=== PATIENT | female | born 1950 | race Caucasian/White ===

== ENCOUNTER 2021-11-08 16:18 | Emergency (ER) | payer MEDICARE, MEDICAID ==
[~2021-11-08] VITALS: Ht 162.6 cm; Wt 81.0 kg
[~2021-11-08 16:18] MED LIST: AMLO10TA80 PO; AMOX125S12 PO; ASPI-1497 PO; BENA40TA91 PO; BRIM5DRO EACHEYE; DORZ10DR9 EACHEYE; LATA2.5D14 EACHEYE; METF-416 PO
[2021-11-08 16:45] VITALS: BP 172/88
[2021-11-08 18:04] LABS: HEMATOCRIT. 36.8 % (36.0-48.0); HEMOGLOBIN. 12.5 g/dL (12.0-16.0); MEAN CORPUSCULAR HEMOGLOBIN 31.3 pg (28.0-32.0); PLATELET 207 x1000/uL (130-400); RED CELL DISTRIBUTION WIDTH 13.3 % (11.6-14.6)
[2021-11-08 18:12] LABS: CLARITY URINE CLEAR (CLEAR); COLOR URINE YELLOW (YELLOW); KETONES URINE NEGATIVE (NEGATIVE); LEUKOCYTE ESTERASE URINE 3+ (NEGATIVE); NITRITE URINE NEGATIVE (NEGATIVE); OCCULT BLOOD URINE NEGATIVE (NEGATIVE); PH URINE 6.5 (4.5-8.0); PROTEIN URINE TRACE (NEGATIVE); SPECIFIC GRAVITY URINE 1.021 (1.005-1.030); UROBILINOGEN URINE 0.2 E.U./dL (0.2-1.0)
[2021-11-08 18:13] LABS: CHLORIDE 103 mEq/L (98-107)
[2021-11-08 18:56] LABS: PLATELET ESTIMATE NORMAL
[2021-11-08] MEDS ORDERED: T3 PO (19:41)
[2021-11-08] MEDS ORDERED: CEPH500T MT (19:41)
[2021-11-08] MEDS ORDERED: IBUP-2029 MT (19:41)
[2021-11-08] MEDS ORDERED: IBUPROFEN 600MG TABLET PO ONE (19:45)
== END 2021-11-08 20:11 | disposition home or self-care (01) ==
LOC: ER 16:18
DX: S09.8XXA Other specified injuries of head, initial encounter (principal); S05.11XA Contusion of eyeball and orbital tissues, right eye, initial encounter; N30.00 Acute cystitis without hematuria; I49.8 Other specified cardiac arrhythmias; E11.9 Type 2 diabetes mellitus without complications; E78.00 Pure hypercholesterolemia, unspecified; I10 Essential (primary) hypertension; M19.90 Unspecified osteoarthritis, unspecified site; W01.0XXA Fall on same level from slipping, tripping and stumbling without subsequent striking against object, initial encounter; Y93.89 Activity, other specified; Y92.488 Other paved roadways as the place of occurrence of the external cause; Z79.82 Long term (current) use of aspirin; Z90.49 Acquired absence of other specified parts of digestive tract; Z90.710 Acquired absence of both cervix and uterus; Z98.890 Other specified postprocedural states
CPT/HCPCS: 36415; 70486; 71045; 80053; 81003; 82962; 85025; 93005; 99285